=== PATIENT | male | born 1985 | race Caucasian/White ===

== ENCOUNTER 2018-12-01 12:22 | Emergency (ER) | payer OTHER ==
[~2018-12-01] VITALS: Ht 188 cm; Wt 94.3 kg
[~2018-12-01 12:22] MED LIST: DEXT20TA2 PO; DIPH25CA58 PO
--- NOTE | 2018-12-01 12:46 | PHYS DOC ---
Past History Past Medical History: Other Past Surgical History: Other Smoking: Non-smoker Alcohol Use: None Additional Alcohol Information: 10oz liquior nightly Drug Use: None Adult General Chief Complaint Chief Complaint: KNEE INJURY [facility] HPI Patient is a 33 year old male here for a knee injury. He states that he fell on top of his knee today at work. He denies any fever or chills, popping sensations, or grinding sensation. He describes a pulling sensation, especially when going down stairs. Going from flexion to extension makes the sensation worse. He denies any pain. Review of Systems Review of Systems Constitutional: Denies fever or chills [] Eyes: Denies change in visual acuity, redness, or eye pain [] HENT: Denies nasal congestion or sore throat [] Respiratory: Denies cough or shortness of breath [] Cardiovascular: No additional information not addressed in HPI [] GI: Denies abdominal pain, nausea, vomiting, bloody stools or diarrhea [] : Denies dysuria or hematuria [] Musculoskeletal: Denies back pain or joint pain [] Integument: Denies rash or skin lesions [] Neurologic: Denies headache, focal weakness or sensory changes [] Endocrine: Denies polyuria or polydipsia [] All other systems were reviewed and found to be within normal limits, except as documented in this note. Allergies Allergies Allergies Coded Allergies Type Severity Reaction Last Updated Verified No Known Drug Allergies 12/01/18 No Physical Exam Physical Exam Constitutional: Well developed, well nourished, no acute distress, non-toxic appearance. [] HENT: Normocephalic, tiny abrasion on the nasal bridge, bilateral external ears normal, oropharynx moist, no oral exudates, nose normal. [] Eyes: PERRLA, EOMI, conjunctiva normal, no discharge. [] Pulmonary: Normal respiratory effort no increased work of breathing no obvious chest wall trauma Abdomen: Bowel sounds normal, soft, no tenderness, no masses, no pulsatile masses. [] Skin: Warm, dry, no erythema, no rash. [] Extremities: Erythema, swelling, and bruising of the left knee. No tenderness to palpation. [] Tiny abrasion left elbow full range of motion Neurologic: Alert and oriented X 3, normal motor function, normal sensory function, no focal deficits noted. [] Psychologic: Affect normal, judgement normal, mood normal. [] Current Patient Data Vital Signs Vital Signs Date Time Temp Pulse Resp B/P (MAP) Pulse Ox O2 Delivery O2 Flow Rate FiO2 12/01/18 12:29 98.5 89 18 97 Room Air EKG EKG [] Radiology/Procedures Radiology/Procedures [] Course & Med Decision Making Course & Med Decision Making Pertinent Labs and Imaging studies reviewed. (See chart for details) []Noted x-ray no fracture seen effusion noted melody wrap applied return precautions reviewed Dragon Disclaimer Dragon Disclaimer This electronic medical record was generated, in whole or in part, using a voice recognition dictation system. Departure Departure: Impression: Primary Impression: Knee injury Disposition: HOME, SELF-CARE Condition: STABLE Referrals: TRISTON VELEZ MD (PCP) SYD MELO MD December 01, 2018 12:46
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
[2018-12-01 13:38] VITALS: BP 125/87
== END 2018-12-01 13:35 | disposition home or self-care (01) ==
LOC: ER 12:22
DX: S80.02XA Contusion of left knee, initial encounter (principal); W18.39XA Other fall on same level, initial encounter; Y93.89 Activity, other specified; Y92.89 Other specified places as the place of occurrence of the external cause; Y99.8 Other external cause status
CPT/HCPCS: 73562; 99284

== ENCOUNTER 2019-10-12 06:28 | Emergency (ER) | payer OTHER ==
[~2019-10-12] VITALS: Ht 188 cm; Wt 94.0 kg
[2019-10-12 06:42] VITALS: BP 130/77
[2019-10-12] MEDS ORDERED: AMOX1TAB61 PO (07:07)
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
[2019-10-12 07:33] LABS: CALCIUM 8.8 mg/dL (8.5-10.1); CREATININE 0.9 mg/dL (0.7-1.3); GFR 97.2; POTASSIUM 3.7 mmol/L (3.5-5.1)
[2019-10-12] MEDS: DIPH,PERTUSS(ACELL),TET VAC/PF 0.5 ML SYRINGE. VAX IM ONE (07:33)
[2019-10-12 07:39] LABS: ALBUMIN 3.9 g/dL (3.4-5.0); ALBUMIN/GLOBULIN RATIO 1.1 (1.0-1.7); TOTAL BILIRUBIN 0.6 mg/dL (0.2-1.0); TOTAL PROTEIN 7.4 g/dL (6.4-8.2)
== END 2019-10-12 07:32 | disposition home or self-care (01) ==
LOC: ER 06:28
DX: S01.81XA Laceration without foreign body of other part of head, initial encounter (principal); W50.3XXA Accidental bite by another person, initial encounter; Y93.89 Activity, other specified; Y92.89 Other specified places as the place of occurrence of the external cause; Y99.8 Other external cause status
CPT/HCPCS: 36415; 80053; 86703; 86705; 86709; 86803; 87340; 90471; 90715; 99283